=== PATIENT | female | born 1955 | race Caucasian/White ===

== ENCOUNTER 2016-12-14 07:46 | Inpatient (IN) ==
[2016-12-09 15:29] LABS: Blood Urea Nitrogen 14 mg/dl (8-23)
[2016-12-09 15:45] LABS: Basophils # (Auto) 0 K/mcL (0.0-0.3); Basophils % (Auto) 0.6 % (0.0-2.0); Eosinophils # (Auto) 0.1 K/mcL (0.0-0.7); Eosinophils % (Auto) 2.1 % (0.0-7.0); Granulocytes % (Auto) 48.2 % (38.0-78.0); Lymphocytes # (Auto) 2.2 K/mcL (1.5-4.8); Lymphocytes % (Auto) 38.6 % (15.5-49.0); Mean Cell Volume 89.3 fL (80.0-100.0); Mean Corpuscular HGB Conc 33.8 g/dL (31.0-36.0); Mean Corpuscular Hemoglobin 30.2 pg (26.0-34.0); Monocytes # (Auto) 0.6 K/mcL (0.1-0.9); Monocytes % (Auto) 10.5 % (1.0-12.0); Platelet Count 207 K/mcL (140-440); RBC 4.47 M/mcL (4.00-5.20); Red Cell Distribution Width 12.6 % (11.5-14.5)
[2016-12-09 16:16] LABS: Appearance,Urine CLEAR; Bilirubin,Urine NEG (NEG); Color,Urine YELLOW; Glucose,Urine (UA) NEGATIVE (NEG); Leukocyte Esterase,Urine NEG /uL (NEG); Nitrate,Urine NEG (NEG); Protein,Urine NEG (NEG); Specific Gravity,Urine 1.033 (1.000-1.035); Urine Blood NEG mg/dL (<0.03); Urobilinogen,Urine NEG (NEG)
[~2016-12-14 07:46] MED LIST: ACETAMINOPHEN 500 MG TABLET PO SCH; CELECOXIB 200 MG CAPSULE PO SCH; KETOROLAC 30 MG, ROPIVACAINE HCL/PF 49.5 ML, EPINEPHrine 0.5 MG, 0.9 % SODIUM CHLORIDE ... IJ SCH; PREGABALIN 75 MG CAPSULE PO SCH; ceFAZolin 1 GM VIAL IV SCH
[2016-12-14] MEDS ORDERED: LIDOCAINE HCL/PF 100 MG/5 ML SYRINGE IV ONE (11:05)
[2016-12-14] MEDS ORDERED: MIDAZOLAM 2 MG/2 ML VIAL IV ONE (11:05)
[2016-12-14] MEDS ORDERED: GLYCOPYRROLATE 0.2 MG/ML VIAL IV ONE (11:05)
[2016-12-14] MEDS ORDERED: ONDANSETRON 4 MG/2 ML VIAL IV ONE (11:05)
[2016-12-14] MEDS ORDERED: PROPOFOL 200 MG/20 ML VIAL IV ONE (11:05)
[2016-12-14] MEDS ORDERED: DEXAMETHASONE 10 MG/ML VIAL IV ONE (11:05)
[2016-12-14] MEDS ORDERED: ePHEDrine 50 MG/ML AMPUL IV ONE (11:05)
[2016-12-14] MEDS ORDERED: PHENYLEPHRINE 10 MG/ML VIAL IV ONE (11:05)
[2016-12-14] MEDS ORDERED: GENTAMICIN SULFATE 800 MG/20 ML VIAL IR ONE (11:38)
[2016-12-14] MEDS ORDERED: ONDANSETRON 4 MG/2 ML VIAL IV PRN ×2 (12:33→12:59)
[2016-12-14] MEDS ORDERED: IPRATROPIUM/ALBUTEROL 3 ML AMPUL.NEB NEB PRN (12:33)
[2016-12-14] MEDS ORDERED: METOPROLOL TARTRATE 5 MG/5 ML VIAL IV PRN (12:33)
[2016-12-14] MEDS ORDERED: ePHEDrine 50 MG/ML AMPUL IV PRN (12:33)
[2016-12-14] MEDS ORDERED: diphenhydrAMINE 50 MG/ML VIAL IV PRN (12:33)
[2016-12-14] MEDS ORDERED: NALOXONE HCL 0.4 MG/ML VIAL IV PRN (12:33)
[2016-12-14] MEDS ORDERED: METHOCARBAMOL 1,000 MG/10 ML VIAL IV PRN (12:33)
[2016-12-14] MEDS ORDERED: ATROPINE SULFATE 0.4 MG/ML VIAL IV PRN (12:33)
[2016-12-14] MEDS ORDERED: BENZOCAINE/MENTHOL 1 LOZENGE PO PRN ×2 (12:33→12:59)
[2016-12-14] MEDS ORDERED: MEPERIDINE 25 MG/ML SYRINGE IV PRN (12:33)
[2016-12-14] MEDS ORDERED: FLUMAZENIL 0.1 MG/ML ML IV PRN (12:33)
[2016-12-14] MEDS ORDERED: LACTATED RINGERS 1,000 ML IV SCH (12:45)
[2016-12-14] MEDS ORDERED: BISACODYL 10 MG SUPP.RECT PR PRN (12:59)
[2016-12-14] MEDS ORDERED: TRANEXAMIC ACID 1,000 MG/10 ML VIAL IV ONE (12:59)
[2016-12-14] MEDS ORDERED: MAGNESIUM HYDROXIDE 30 ML ORAL.SUSP PO PRN (12:59)
[2016-12-14] MEDS ORDERED: TEMAZEPAM 15 MG CAPSULE PO PRN (12:59)
[2016-12-14] MEDS ORDERED: POLYETHYLENE GLYCOL 3350 17 GM PACKET PO PRN (12:59)
[2016-12-14] MEDS ORDERED: FLEETS ADULT ENEMA PR PRN (12:59)
[2016-12-14] MEDS ORDERED: ACETAMINOPHEN 325 MG TABLET PO PRN (12:59)
--- NOTE | 2016-12-14 12:59 | Brief Operative Note ---
Date of procedure: 12/14/16 Pre-op diagnosis: Left knee djd severe in all 3 compartment Post-op diagnosis: same Procedure: Left robotic tka Grafts/Implants: Yes Anesthesia: LUIZ Surgeon: Patric Conroy Terminal Operations Manager: Bernabe Chaves Estimated blood loss (cc): 20 Tourniquet Time (Minutes): 72 Specimens Removed/Pathology: none sent Condition: stable Disposition: PACU
[2016-12-14] MEDS: fentaNYL 100 MCG/2 ML VIAL IV PRN ×4 (14:00→14:20)
--- NOTE | 2016-12-14 14:07 | Operative Note ---
DATE OF OPERATION: 12/14/2016 PREOPERATIVE DIAGNOSIS: Left knee degenerative arthritis, severe. POSTOPERATIVE DIAGNOSIS: Left knee degenerative arthritis, severe. PROCEDURE: Left total knee arthroplasty. SURGEON: Patric Conroy MD. MARINE MACHINIST: Bernabe Chaves PA-C. ANESTHESIA: General LMA anesthesia. COMPLICATIONS: None. IMPLANTS: This was a robotic total knee arthroplasty using [place] components. A size 4 femur, size 4 tibial baseplate with an 11 mm poly, and a 33 mm patellar button. All components were cemented. No complications. This was a cruciate retained design. ESTIMATED BLOOD LOSS: About 20 mL. DESCRIPTION OF PROCEDURE: The patient was brought to the operating room and put to sleep with general LMA anesthesia. Once asleep, the patient had the left leg confirmed as the operative site. Once this was done, we sterilely prepped and draped with Ioban over the skin. The leg was exsanguinated and inflated the tourniquet to 325 pounds of pressure. Midline incision was made, mid vastus approach performed, and exposed the joint showing severe arthritis in all three compartments, intact ACL and PCL. We removed the ACL and anterior menisci. We then registered the center of hip rotation, medial and lateral malleolus, and then intraarticular pins of femur and tibia were registered, as well as 30 points on the femur and tibia. We then balanced the knee at 15 degrees and 90 degrees respectively, both medial and lateral. Once the components were readjusted to accommodate for the alignment and rotation of the femur, we then proceeded by bringing the robot in. It was registered, as well as the femur. The distal femoral cut and posterior chamfer cut was made. Once done, we then changed the saw blade and made our posterior and anterior cut and anterior chamfer cut. Then, we made our tibial cut after registering the robot and the tibia again. The bony fragments were removed, meniscus fragments were removed, and spurs posteriorly were removed. We injected the soft tissue capsule with a post-inject formula. We then set rotation using the robot of the tibia and punched into place the tibia and femur. Once this was done, we then placed an 11 mm poly taking it through range of motion and registering the preoperative plan. Full extension was achieved. We irrigated thoroughly. We then prepared the patella. It measured 20 mm in total. This was cut to 13, and then this was cemented into place, a patellar component 33 mm in diameter. We irrigated thoroughly and took the knee through range of motion. Patella tracked perfectly. We irrigated thoroughly. We then irrigated and cemented into place the above-mentioned sizes. Excess cement was removed. An 11 mm poly and patellar button were all cemented, and then we closed the capsule after deflating the tourniquet and closed with two Stratafix sutures. Skin was closed with 0 Vicryl and adhesive closure, as well as the portals were closed with 4-0 nylon. The patient tolerated this well. No complication. ANA PAULA:emmanuel Job ID: [id number] Doc ID: [id number] Patric Conroy MD
[2016-12-14] MEDS: HYDROmorphone 2 MG/ML SYRINGE IV PRN ×3 (14:26→15:23)
[2016-12-14] MEDS: 0.9 % SODIUM CHLORIDE 10 ML SYRINGE IV SCH ×2 (14:35→21:44)
[2016-12-14] MEDS: 0.45 % SODIUM CHLORIDE 1,000 ML IV SCH (14:35)
--- NOTE | 2016-12-14 14:39 | XRay Report ---
HISTORY: Reason for Exam:Post-Op Total Knee FINDINGS: There is a well positioned total knee prosthesis. No fracture is present. There are no abnormal soft tissue calcifications. A joint effusion is noted. IMPRESSION: Well-positioned knee prosthesis Interpreted and Authenticated by: Fredi Reese 12/14/16
[2016-12-14] MEDS: HYDROcodone/APAP 10/325MG TABLET PO PRN (17:35)
[2016-12-14] MEDS: KETOROLAC 15 MG/ML VIAL IV SCH (18:10)
[2016-12-14] MEDS: ceFAZolin 1 GM VIAL IV SCH (19:16)
[2016-12-14] MEDS ORDERED: VITAMIN D3 1,000 UNIT TABLET PO SCH (21:00)
[2016-12-14] MEDS ORDERED: SENNOSIDES 1 TABLET PO SCH (21:00)
[2016-12-14] MEDS ORDERED: CITALOPRAM 20 MG TABLET PO SCH (21:00)
[2016-12-14] MEDS ORDERED: ESTROGENS, CONJUGATED 0.625 MG TABLET PO SCH (21:00)
[2016-12-14] MEDS ORDERED: SIMVASTATIN 20 MG TABLET PO SCH (21:00)
[2016-12-14] MEDS: oxyCODONE 10 MG TAB.ER.12H PO SCH (21:41)
[2016-12-14] MEDS: DOCUSATE SODIUM 100 MG CAPSULE PO SCH (21:42)
[2016-12-14] MEDS: sulfaSALAzine 500 MG TABLET PO SCH (21:43)
[2016-12-14] MEDS: ASPIRIN 325 MG ENTERIC COATED TABLET PO SCH (21:43)
[2016-12-15] MEDS: 0.45 % SODIUM CHLORIDE 1,000 ML IV SCH (00:08)
[2016-12-15] MEDS: KETOROLAC 15 MG/ML VIAL IV SCH ×3 (00:09→11:45)
[2016-12-15] MEDS: HYDROcodone/APAP 10/325MG TABLET PO PRN ×4 (01:08→14:58)
[2016-12-15] MEDS: HYDROmorphone 2 MG/ML SYRINGE IV PRN (01:09)
[2016-12-15] MEDS: ceFAZolin 1 GM VIAL IV SCH (02:59)
[2016-12-15] MEDS: 0.9 % SODIUM CHLORIDE 10 ML SYRINGE IV SCH ×2 (05:24→16:12)
[2016-12-15] MEDS ORDERED: LEVOTHYROXINE 50 MCG TABLET PO SCH (07:30)
[2016-12-15] MEDS ORDERED: OMEPRAZOLE 20 MG CAPSULE PO SCH (07:30)
[2016-12-15] MEDS ORDERED: LEVOTHYROXINE 100 MCG TABLET PO SCH (07:30)
--- NOTE | 2016-12-15 07:45 | Orthopedic Progress Note ---
Subjective Patient information: Note initiated : 12/15/16 at 7:44 am Service Date, if different from initiated Date: [] Patient: Stephania Brannon 60 y/o F admitted on 12/14/16 for Left Total Knee Arthroplasty - Robotic Assist. Chief Complaint: [Pt is stable this morning on post operative day 1 without any significant concerns or complaints. Patients vital signs have remained stable. Patients dressing is dry and exhibits a grossly intact neurovascular and neuromotor exam. Patients 10 point ROS is otherwise negative. ] Objective Vital signs: Vital Signs Temp Pulse Resp BP BP Pulse Ox 12/15/16 03:00 97.8 F 88 16 146/91 95 12/14/16 23:05 98.5 F 81 16 129/86 93 12/14/16 20:03 95 12/14/16 20:00 97.6 F 86 12 125/80 93 12/14/16 17:15 97.4 F 96 H 16 113/57 93 12/14/16 16:59 93 12/14/16 16:15 78 14 120/85 93 12/14/16 15:45 72 14 136/91 90 12/14/16 15:15 145/86 90 12/14/16 15:00 136/68 92 12/14/16 14:45 97.4 F 133/84 93 12/14/16 14:30 97.4 F 77 12 95 12/14/16 14:20 98.4 F 76 14 129/70 93 12/14/16 14:12 76 13 131/74 91 12/14/16 13:55 77 13 134/70 93 12/14/16 13:48 98 F 77 13 123/65 99 12/14/16 13:35 98 F 74 14 116/66 99 12/14/16 13:28 70 16 125/67 99 12/14/16 13:22 98 F 72 16 123/72 99 12/14/16 08:00 98 F 16 126/74 98 12/14/16 07:46 18 Intake and Output 12/14/16 12/15/16 12/15/16 21:59 05:59 13:59 Intake Total 290 / 290 1005 / 1005 Output Total 1600 / 1600 225 / 225 Balance -1310 / -1310 780 / 780 Intake: IV 50 / 50 955 / 955 Sodium Chloride 0.45% 1, 955 / 955 000 ml @ 100 mls/hr IV . Q10H BERNABE Rx#:[id number] Oral 240 / 240 50 / 50 Output: Urine Catheter Amount 800 / 800 Void Amount 800 / 800 225 / 225 Straight 800 / 800 Other: Meal Dinner Percent of Meal Consumed 100% Feeding Ability Independent # Voids 1 Weight 323 lb 3.2 oz Intake & Output: Intake & Output 12/14/16 12/15/16 12/15/16 21:59 05:59 13:59 Intake Total 290 / 290 1005 / 1005 Output Total 1600 / 1600 225 / 225 Balance -1310 / -1310 780 / 780 Weight 323 lb 3.2 oz Intake: IV 50 / 50 955 / 955 Sodium Chloride 0.45% 1, 955 / 955 000 ml @ 100 mls/hr IV . Q10H BERNABE Rx#:[id number] Oral 240 / 240 50 / 50 Output: Urine Catheter Amount 800 / 800 Void Amount 800 / 800 225 / 225 Straight 800 / 800 Other: Meal Dinner Percent of Meal Consumed 100% Feeding Ability Independent # Voids 1 Incision: Yes healing Incision clean and dry: Yes Dressing: Yes clean Weight bearing status: full Neurological exam IM: Yes motor sensory intact, Yes neurovascular intact Extremities exam IM: Yes Foot pink and warm, Yes neurovascular intact - Labs CBC & BMP: 12/15/16 05:50 12/09/16 14:18 Labs: Orthopedic Labs 12/09/16 14:18 PT 13.3 INR 1.0 APTT 37 12/15/16 12/09/16 05:50 14:18 Hgb 13.5 Hct 35.7 L 39.9 Assessment and Plan (1) Hx of total knee arthroplasty Patient has been educated regarding wound care and dressings, follow up recommendations, and medication use. We will f/u with the patient within 2-3 weeks for wound check. Status: Acute
--- NOTE | 2016-12-15 07:48 | Discharge Summary ---
Ortho Discharge - TKA - Patient Instructions Diet: Regular Diet Activity: activity as tolerated, weight bearing as tolerated Total Knee Protocol: For Total Knee: Start ROM CHRISTEN with stationary bike or rocking chair. Work on gaining full extension of knee. Posterior dislocation precautions provided. Hip abductor strengthening and gait training instructions provided. Apply Cryocuff as instructed. Dressing Care: May shower in 3 days, Aquacel Ag - leave on for 5 days Patient Education: Total Knee Replacement (DC) Additional Instructions: [facility] Physical Therapy [phone] APPOINTMENT: December 17. Please check in to do paperwork at 12:45 for your 1:00pm appointment. Bring your insurance cards and photo ID. Wear comfortable clothes and consider taking pain medications 30 minutes prior to your appointment. Your PT orders have been faxed to them. CPM for home use - Problem Maintenance (1) Hx of total knee arthroplasty Status: Acute - Follow Up Plan Follow Up Appointments: Patric Conroy MD [Physician] - Disposition: Home, Self-Care Prognosis: Good Rehab Potential: Good I certify that the patient requires SNF services: No Overall status at discharge: patient is progressing back to baseline - Orders For Discharge Prescriptions: Aspirin [Ecotrin] 325 mg PO BID #60 Docusate Sodium [Colace] 100 mg PO BID #60 capsule HYDROcodone/APAP 10/325MG [[place] 10/325Mg] 1 - 2 tab PO Q4HP PRN #75 tablet PRN Reason: Pain
[2016-12-15] MEDS ORDERED: LISINOPRIL 20 MG TABLET PO SCH (09:00)
[2016-12-15] MEDS ORDERED: HYDROCHLOROTHIAZIDE 12.5 MG CAPSULE PO SCH (09:00)
[2016-12-15] MEDS: ASPIRIN 325 MG ENTERIC COATED TABLET PO SCH (09:08)
[2016-12-15] MEDS: DOCUSATE SODIUM 100 MG CAPSULE PO SCH (09:08)
[2016-12-15] MEDS: oxyCODONE 10 MG TAB.ER.12H PO SCH (09:08)
[2016-12-15] MEDS: sulfaSALAzine 500 MG TABLET PO SCH (09:09)
== END 2016-12-15 16:25 | disposition home or self-care (01) | DRG 470 ==
LOC: MEDSUR 07:46
PROVIDERS: ADMIT Orthopaedic Surgery; ATTEND Orthopaedic Surgery

== ENCOUNTER 2017-02-26 07:43 | Inpatient (IN) ==
[2017-02-22 16:09] LABS: Basophils # (Auto) 0 K/mcL (0.0-0.3); Basophils % (Auto) 0.5 % (0.0-2.0); Eosinophils # (Auto) 0.1 K/mcL (0.0-0.7); Eosinophils % (Auto) 1.9 % (0.0-7.0); Granulocytes % (Auto) 49.4 % (38.0-78.0); Lymphocytes # (Auto) 2.3 K/mcL (1.5-4.8); Lymphocytes % (Auto) 38.3 % (15.5-49.0); Mean Cell Volume 91.4 fL (80.0-100.0); Mean Corpuscular Hemoglobin 30.1 pg (26.0-34.0); Monocytes # (Auto) 0.6 K/mcL (0.1-0.9); Monocytes % (Auto) 9.9 % (1.0-12.0); Platelet Count 202 K/mcL (140-440); RBC 4.26 M/mcL (4.00-5.20); Red Cell Distribution Width 14.2 % (11.5-14.5)
[2017-02-22 16:12] LABS: Appearance,Urine CLEAR; Bilirubin,Urine NEG (NEG); Color,Urine YELLOW; Glucose,Urine (UA) NEGATIVE (NEG); Leukocyte Esterase,Urine NEG /uL (NEG); Nitrate,Urine NEG (NEG); Protein,Urine NEG (NEG); Specific Gravity,Urine 1.025 (1.000-1.035); Urine Blood NEG mg/dL (<0.03); Urobilinogen,Urine NEG (NEG)
[2017-02-22 16:27] LABS: Blood Urea Nitrogen 13 mg/dl (8-23)
[~2017-02-26 07:43] MED LIST changes: +oxyCODONE 10 MG TAB.ER.12H PO SCH
[2017-02-26] MEDS ORDERED: FLEETS ADULT ENEMA PR PRN (11:04)
[2017-02-26] MEDS ORDERED: POLYETHYLENE GLYCOL 3350 17 GM PACKET PO PRN (11:04)
[2017-02-26] MEDS ORDERED: BISACODYL 10 MG SUPP.RECT PR PRN (11:04)
[2017-02-26] MEDS ORDERED: TRANEXAMIC ACID 1,000 MG/10 ML VIAL IV SCH (11:04)
[2017-02-26] MEDS ORDERED: BENZOCAINE/MENTHOL 1 LOZENGE PO PRN ×2 (11:04→12:31)
[2017-02-26] MEDS ORDERED: ACETAMINOPHEN 325 MG TABLET PO PRN (11:04)
[2017-02-26] MEDS ORDERED: MAGNESIUM HYDROXIDE 30 ML ORAL.SUSP PO PRN (11:04)
--- NOTE | 2017-02-26 11:04 | Brief Operative Note ---
Date of procedure: 02/26/17 Pre-op diagnosis: right tka Post-op diagnosis: same Procedure: Right robotic tka Grafts/Implants: Yes Anesthesia: GETA Complications: none Complications Description: 02/26/17 11:03 none Surgeon: Patric Conroy Metaphysicist: Bernabe Chaves Estimated blood loss (cc): 50 Tourniquet Time (Minutes): 52 Specimens Removed/Pathology: none sent Condition: stable Disposition: PACU
[2017-02-26] MEDS ORDERED: MIDAZOLAM 2 MG/2 ML VIAL IV ONE (11:12)
[2017-02-26] MEDS ORDERED: PROPOFOL 200 MG/20 ML VIAL IV ONE (11:12)
[2017-02-26] MEDS ORDERED: LIDOCAINE HCL/PF 100 MG/5 ML SYRINGE IV ONE (11:12)
[2017-02-26] MEDS ORDERED: PHENYLEPHRINE 10 MG/ML VIAL IV ONE (11:12)
[2017-02-26] MEDS ORDERED: TRANEXAMIC ACID 1,000 MG/10 ML VIAL IV ONE (11:12)
[2017-02-26] MEDS ORDERED: ONDANSETRON 4 MG/2 ML VIAL IV ONE (11:12)
[2017-02-26] MEDS ORDERED: GLYCOPYRROLATE 0.2 MG/ML VIAL IV ONE (11:12)
[2017-02-26] MEDS ORDERED: DEXAMETHASONE 10 MG/ML VIAL IV ONE (11:12)
[2017-02-26] MEDS ORDERED: GENTAMICIN SULFATE 800 MG/20 ML VIAL IR ONE (11:52)
[2017-02-26] MEDS ORDERED: diphenhydrAMINE 50 MG/ML VIAL IV PRN (12:31)
[2017-02-26] MEDS ORDERED: LACTATED RINGERS 250 ML IV PRN (12:31)
[2017-02-26] MEDS ORDERED: IPRATROPIUM/ALBUTEROL 3 ML AMPUL.NEB NEB PRN (12:31)
[2017-02-26] MEDS ORDERED: METHOCARBAMOL 1,000 MG/10 ML VIAL IV PRN (12:31)
[2017-02-26] MEDS ORDERED: ePHEDrine 50 MG/ML AMPUL IV PRN (12:31)
[2017-02-26] MEDS ORDERED: FLUMAZENIL 0.1 MG/ML ML IV PRN (12:31)
[2017-02-26] MEDS ORDERED: MEPERIDINE 25 MG/ML SYRINGE IV PRN (12:31)
[2017-02-26] MEDS ORDERED: HYDROmorphone 2 MG/ML SYRINGE IV PRN (12:31)
[2017-02-26] MEDS ORDERED: PROMETHAZINE 25 MG/ML VIAL IV PRN (12:31)
[2017-02-26] MEDS ORDERED: fentaNYL 100 MCG/2 ML VIAL IV PRN (12:31)
[2017-02-26] MEDS ORDERED: PROMETHAZINE 25 MG/ML VIAL IM PRN (12:31)
[2017-02-26] MEDS ORDERED: MEPERIDINE 50 MG/ML SYRINGE IM PRN (12:31)
[2017-02-26] MEDS ORDERED: ONDANSETRON 4 MG/2 ML VIAL IV PRN (12:31)
[2017-02-26] MEDS ORDERED: NALOXONE HCL 0.4 MG/ML VIAL IV PRN (12:31)
[2017-02-26] MEDS ORDERED: LACTATED RINGERS 1,000 ML IV SCH (12:45)
--- NOTE | 2017-02-26 13:30 | Operative Note ---
DATE OF OPERATION: 02/26/2017 PREOPERATIVE DIAGNOSIS: Right knee degenerative arthritis throughout all three compartments. POSTOPERATIVE DIAGNOSIS: Right knee degenerative arthritis throughout all three compartments. PROCEDURE: NADIRA robot total knee arthroplasty. SURGEON: Patric Conroy M.D. FISH AGENT: Bernabe Chaves PA-C. ANESTHESIA: General LMA anesthesia. COMPLICATIONS: None. TOTAL TOURNIQUET TIME: 64 minutes. COMPLICATIONS: None. ESTIMATED BLOOD LOSS: About 50 mL. IMPLANTS PLACED: Size 4 femur, size 4 tibial baseplate with a 9 mm poly and a 36 mm patellar button. DESCRIPTION OF PROCEDURE: The patient was brought to the operating room and put to sleep with general LMA anesthesia. Once asleep, the patient had the right leg sterilely prepped and draped in the usual sterile fashion. A timeout was performed confirming the operative site, and then the patient received tranexamic acid and antibiotics, 2 grams of Ancef. Once this was done, we then placed Ioban over the skin, exsanguinated the leg at 300 pounds of pressure. We made a midline incision, a mid vastus approach performed. We exposed the joint showing severe arthritis. At that point we proceeded with a total knee arthroplasty using the NADIRA robot. Two pins above and below the knee were placed. We registered the center hip rotation, thirty points on the femur and tibia, and two articular pins were registered. The robot was registered. We balanced the knee in both flexion and extension at 90 degrees and 0 degrees. She had about an 8 degree flexion contracture at the start of the case. Once this was done, we then brought in the robot, perfectly positioned the components. The robot came in and made the cuts on the femur and the tibia. These bony fragments were removed. The remnants of the meniscus were removed, and osteophytes posteriorly were removed. We set the rotation using the robot, size 4 tibial baseplate. This was punched into place. The size 4 femur was tapped into place and posts were drilled. We then placed a 9 mm poly at 0 degrees extension and full range of motion was achieved. Posterior cruciate ligament was kept. We irrigated thoroughly and then prepared the patella. Its total thickness was 20 mm. We cut this to 14 mm because of her size, and we also placed a 36 mm patellar button. All components were cemented after trialing these components which fit very nicely. Once the cement was dry, we kept the knee at 45 degrees. A 9 mm poly was inserted. Pins were all removed and counted. We then closed the mid vastus approach after the tourniquet had been deflated at 64 minutes. The mid vastus approach was closed with a #1 Stratafix suture x2 sutures. We closed the skin with #1 Vicryl and 2-0 Vicryl and koko. Sterile bandage applied. The patient tolerated this well. Blood loss was about 50 mL. ANA PAULA:emmanuel Job ID: [id number] Doc ID: [id number] Patric Conroy MD
[2017-02-26] MEDS: 0.9 % SODIUM CHLORIDE 10 ML SYRINGE IV SCH ×3 (14:32→22:33)
[2017-02-26] MEDS: 0.45 % SODIUM CHLORIDE 1,000 ML IV SCH ×2 (14:32→23:48)
--- NOTE | 2017-02-26 14:34 | XRay Report ---
HISTORY: Reason for Exam:Post-Op Total Knee FINDINGS: There is a well positioned total knee prosthesis. No fracture is present. There are no abnormal soft tissue calcifications. IMPRESSION: Well-positioned right knee prosthesis Interpreted and Authenticated by: Fredi Reese 02/26/17
[2017-02-26] MEDS: ONDANSETRON 4 MG/2 ML VIAL IV PRN ×3 (15:28→23:55)
[2017-02-26] MEDS: oxyCODONE/APAP 5/325MG TABLET PO PRN (15:52)
[2017-02-26] MEDS: HYDROmorphone 2 MG/ML SYRINGE IV PRN ×2 (16:51→19:13)
[2017-02-26] MEDS: KETOROLAC 15 MG/ML VIAL IV SCH ×2 (17:44→23:39)
[2017-02-26] MEDS: ceFAZolin 1 GM VIAL IV SCH (17:45)
[2017-02-26] MEDS ORDERED: NON FORMULARY MEDICATION 1 DOSE MISCELL (Aspirin [Adult Low Dose Aspirin Ec] 81 MG) PO SCH (21:00)
[2017-02-26] MEDS ORDERED: TEMAZEPAM 15 MG CAPSULE PO PRN (21:00)
[2017-02-26] MEDS ORDERED: DICLOFENAC PO SCH (21:00)
[2017-02-26] MEDS: DOCUSATE SODIUM 100 MG CAPSULE PO SCH (22:30)
[2017-02-26] MEDS: VITAMIN D3 1,000 UNIT TABLET PO SCH (22:30)
[2017-02-26] MEDS: FISH OIL 1,000 MG CAPSULE PO SCH (22:30)
[2017-02-26] MEDS: ESTROGENS, CONJUGATED 0.625 MG TABLET PO SCH (22:30)
[2017-02-26] MEDS: HYDROCHLOROTHIAZIDE 12.5 MG CAPSULE PO SCH (22:30)
[2017-02-26] MEDS: sulfaSALAzine 500 MG TABLET PO SCH (22:31)
[2017-02-26] MEDS: MULTIVIT,THER IRON,CA,FA & MIN 1 TABLET PO SCH (22:31)
[2017-02-26] MEDS: OMEPRAZOLE 20 MG CAPSULE PO SCH (22:31)
[2017-02-26] MEDS: CITALOPRAM 20 MG TABLET PO SCH (22:31)
[2017-02-26] MEDS: SIMVASTATIN 20 MG TABLET PO SCH (22:32)
[2017-02-26] MEDS: SENNOSIDES 1 TABLET PO SCH (22:32)
[2017-02-26] MEDS: LISINOPRIL 20 MG TABLET PO SCH (22:32)
[2017-02-26] MEDS: ASPIRIN 325 MG ENTERIC COATED TABLET PO SCH (22:32)
[2017-02-27] MEDS: ceFAZolin 1 GM VIAL IV SCH (02:15)
[2017-02-27] MEDS: 0.9 % SODIUM CHLORIDE 10 ML SYRINGE IV SCH ×3 (05:57→20:36)
[2017-02-27] MEDS: KETOROLAC 15 MG/ML VIAL IV SCH ×3 (05:57→17:26)
[2017-02-27] MEDS: oxyCODONE/APAP 5/325MG TABLET PO PRN ×4 (06:32→16:46)
[2017-02-27] MEDS: 0.45 % SODIUM CHLORIDE 1,000 ML IV SCH (06:33)
[2017-02-27] MEDS: sulfaSALAzine 500 MG TABLET PO SCH ×2 (08:31→20:33)
[2017-02-27] MEDS: ASPIRIN 325 MG ENTERIC COATED TABLET PO SCH ×2 (08:31→20:33)
[2017-02-27] MEDS: LEVOTHYROXINE 50 MCG TABLET PO SCH (08:31)
[2017-02-27] MEDS: R PO SCH (08:31)
[2017-02-27] MEDS: DOCUSATE SODIUM 100 MG CAPSULE PO SCH ×2 (08:31→20:33)
--- NOTE | 2017-02-27 09:11 | Orthopedic Progress Note ---
Subjective Patient information: Note initiated : 02/27/17 at 9:09 am Service Date, if different from initiated Date: [] Patient: Stephania Brannon 61 y/o F admitted on 02/26/17 for Right Total Knee Arthroplasty with [place] Robot. Chief Complaint: [She did have nausea and vomiting and has not urinated and is walking welll and wants to go home if she feels better today.] Objective Vital signs: Vital Signs Temp Pulse Resp BP Pulse Ox 02/27/17 08:41 94 02/27/17 06:46 91 02/27/17 06:28 96.6 F L 18 106/68 98 02/27/17 03:37 97.2 F 76 16 104/66 96 02/27/17 03:00 96 02/26/17 23:42 97.4 F 88 16 109/63 95 02/26/17 23:00 94 02/26/17 20:00 93 02/26/17 19:23 98 F 87 15 110/72 94 02/26/17 19:04 94 02/26/17 16:53 132/83 96 02/26/17 16:52 130/75 97 02/26/17 16:07 95 02/26/17 15:25 122/76 92 02/26/17 15:04 76 02/26/17 14:55 117/70 96 02/26/17 14:40 111/64 94 02/26/17 14:25 106/67 94 02/26/17 14:10 145/69 97 02/26/17 14:02 97.4 F 71 13 115/66 95 02/26/17 14:00 69 02/26/17 13:57 77 18 123/72 97 02/26/17 13:52 70 14 113/66 96 02/26/17 13:47 68 18 115/74 97 02/26/17 13:42 68 16 127/70 97 02/26/17 13:32 97.4 F 65 12 128/72 95 Intake and Output 02/26/17 02/27/17 02/27/17 21:59 05:59 13:59 Intake Total 1640 / 1640 1127 / 1127 320 / 320 Output Total 850 / 850 Balance 1640 / 1640 277 / 277 320 / 320 Intake: IV 1050 / 1050 927 / 927 Sodium Chloride 0.45% 1,000 ml 927 / 927 @ 100 mls/hr IV .Q10H BERNABE Rx#: [id number] Oral 590 / 590 200 / 200 320 / 320 Output: Urine Catheter Amount 375 / 375 Emesis 475 / 475 Other: Meal Dinner Breakfast Percent of Meal Consumed 25% 100% Feeding Ability Independent # Voids 1 Weight 308 lb Intake & Output: Intake & Output 02/26/17 02/27/17 02/27/17 21:59 05:59 13:59 Intake Total 1640 / 1640 1127 / 1127 320 / 320 Output Total 850 / 850 Balance 1640 / 1640 277 / 277 320 / 320 Weight 308 lb Intake: IV 1050 / 1050 927 / 927 Sodium Chloride 0.45% 1,000 ml 927 / 927 @ 100 mls/hr IV .Q10H BERNABE Rx#: [id number] Oral 590 / 590 200 / 200 320 / 320 Output: Urine Catheter Amount 375 / 375 Emesis 475 / 475 Other: Meal Dinner Breakfast Percent of Meal Consumed 25% 100% Feeding Ability Independent # Voids 1 Incision: Yes healing Incision clean and dry: Yes Dressing: Yes clean Weight bearing status: full Neurological exam IM: Yes oriented X3, Yes neurovascular intact Extremities exam IM: Yes Foot pink and warm (dc home), Yes neurovascular intact - Labs CBC & BMP: 02/27/17 05:25 02/22/17 14:47 Labs: Orthopedic Labs 02/22/17 14:47 PT 12.9 INR 1.0 APTT 32 02/27/17 02/22/17 05:25 14:48 Hgb 12.8 Hct 36.0 38.9
--- NOTE | 2017-02-27 09:18 | Discharge Summary ---
Ortho Discharge - TKA - Patient Instructions Diet: Regular Diet Activity: activity as tolerated, weight bearing as tolerated Total Knee Protocol: For Total Knee: Start ROM CHRISTEN with stationary bike or rocking chair. Work on gaining full extension of knee. Posterior dislocation precautions provided. Hip abductor strengthening and gait training instructions provided. Apply Cryocuff as instructed. Dressing Care: May shower in 2 days, Aquacel Ag - leave on for 5 days Patient Education: Total Knee Replacement (DC) Additional Instructions: Discharge Instructions: Do the exercises at home that physical therapy gave you. Weight bearing as tolerated. Please call [facility] Physical Therapy on WednesdayMarch 01 to make an appointment , . Take your prescription, photo ID, insurance cards, and current medication list with you to your first physical therapy appointment. Wear comfortable clothing for your physical therapy. Take your prescription to rock picker any medication or equipment (such as walker, crutches, toilet riser or C.P.M.) CPM for home use You have the Aquacel Ag dressing, leave in place for 7 days then remove. If dressing becomes soiled (turns black), remove and use gauze 4x4 dressing and silvasorb ointment and change daily. Keep incision clean and dry. You may start showering on post op day #2. To avoid constipation while taking any narcotic pain medication, take an over the counter stool softener/laxative. Use your Cryocuff or ice packs as directed, on for 20 minutes at a time throughout the day. This and elevation will help with pain and swelling. Call your physician for fevers above 100.5 or pain not controlled by medication. Your prescriptions are with your discharge information. Some medications were electronically transmitted to your pharmacy of choice. - Follow Up Plan Follow Up Appointments: Patric Conroy MD [Physician] - 03/11/17 10:40 am Disposition: Home, Self-Care Prognosis: Good Rehab Potential: Good I certify that the patient requires SNF services: No Overall status at discharge: patient is progressing back to baseline - Orders For Discharge Prescriptions: Aspirin [Ecotrin] 325 mg PO DAILY #14 tab.ec oxyCODONE/APAP [Percocet 5-325 mg] 1 - 2 tab PO Q4H PRN #60 tab PRN Reason: Pain Additional Discharge Orders: Physical Therapy at Discharge - TKA Location: Determined By Patient Toilet Riser Discharge Order Location: Determined By Patient Walker Location: Determined By Patient
[2017-02-27] MEDS: HYDROmorphone 2 MG/ML SYRINGE IV PRN (09:26)
--- NOTE | 2017-02-27 09:28 | Discharge Summary ---
Providers - Providers Patient information: Note initiated : 02/27/17 at 9:25 am Service Date, if different from initiated Date: [] Patient: Stephania Brannon 61 y/o F admitted on 02/26/17 for Right Total Knee Arthroplasty with Raffi Robot. Chief Complaint: [] Date of admission: 02/26/17 Discharge date: 02/27/17 Attending physician: Patric Conroy Hospitalization Hospital course: doing well and walking greater than 100 feet Discharge diagnosis: right tka Procedures: right tka with robot Complications: none Ortho Discharge - TKA - Patient Instructions Diet: Regular Diet Activity: activity as tolerated, weight bearing as tolerated Total Knee Protocol: For Total Knee: Start ROM CHRISTEN with stationary bike or rocking chair. Work on gaining full extension of knee. Posterior dislocation precautions provided. Hip abductor strengthening and gait training instructions provided. Apply Cryocuff as instructed. Patient Education: Total Knee Replacement (DC) Additional Instructions: Discharge Instructions: Do the exercises at home that physical therapy gave you. Weight bearing as tolerated. Please call [facility] on WednesdayMarch 01 to make an appointment , . Take your prescription, photo ID, insurance cards, and current medication list with you to your first physical therapy appointment. Wear comfortable clothing for your physical therapy. Take your prescription to picker and packer any medication or equipment (such as walker, crutches, toilet riser or C.P.M.) CPM for home use You have the Aquacel Ag dressing, leave in place for 7 days then remove. If dressing becomes soiled (turns black), remove and use gauze 4x4 dressing and silvasorb ointment and change daily. Keep incision clean and dry. You may start showering on post op day #2. To avoid constipation while taking any narcotic pain medication, take an over the counter stool softener/laxative. Use your Cryocuff or ice packs as directed, on for 20 minutes at a time throughout the day. This and elevation will help with pain and swelling. Call your physician for fevers above 100.5 or pain not controlled by medication. Your prescriptions are with your discharge information. Some medications were electronically transmitted to your pharmacy of choice. - Follow Up Plan Follow Up Appointments: Patric Conroy MD [Physician] - 03/11/17 10:40 am Disposition: Home, Self-Care Prognosis: Good Rehab Potential: Good I certify that the patient requires SNF services: No - Orders For Discharge Prescriptions: Aspirin [Ecotrin] 325 mg PO DAILY #14 tab.ec oxyCODONE/APAP [Percocet 5-325 mg] 1 - 2 tab PO Q4H PRN #60 tab PRN Reason: Pain Additional Discharge Orders: Physical Therapy at Discharge - TKA Location: Determined By Patient Toilet Riser Discharge Order Location: Determined By Patient Walker Location: Determined By Patient Pending Studies Resuscitation Status Full Code Diet Regular Diet Start WedFeb 26 Lunch Aspirin (Ecotrin) 325 mg PO BID [facility] Last Admin: 02/27/17 08:31 Dose: 325 mg Admin: 02/26/17 22:32 Dose: 325 mg Citalopram Hydrobromide (Celexa) 20 mg PO [facility] Last Admin: 02/26/17 22:31 Dose: 20 mg Docusate Sodium (Colace) 100 mg PO BID [facility] Last Admin: 02/27/17 08:31 Dose: 100 mg Admin: 02/26/17 22:30 Dose: 100 mg Estrogens Conjugated (Premarin) 0.625 mg PO [facility] Last Admin: 02/26/17 22:30 Dose: 0.625 mg Fish Oil (Fish Oil) 1,000 mg PO [facility] Last Admin: 02/26/17 22:30 Dose: 1,000 mg Hydrochlorothiazide (Oretic) 12.5 mg PO [facility] Last Admin: 02/26/17 22:30 Dose: 12.5 mg Hydromorphone HCl (Dilaudid) 0 mg IV Q2HP PRN PRN Reason: Pain Last Admin: 02/26/17 19:13 Dose: 2 mg Admin: 02/26/17 16:51 Dose: 2 mg Sodium Chloride (Sodium Chloride 0.45%) 1,000 mls @ 100 mls/hr IV .Q10H [facility] Last Admin: 02/27/17 06:33 Dose: Not Given Admin: 02/26/17 23:48 Dose: 100 mls/hr Infusion: 02/26/17 23:48 Dose: 100 mls/hr Admin: 02/26/17 14:32 Dose: 100 mls/hr Iron Carb/Multivit/Poultry Dressing Worker/Folic Acid (Multivitamin W/Minerals) 1 tab PO [facility] Last Admin: 02/26/17 22:31 Dose: 1 tab Ketorolac Tromethamine (Toradol) 15 mg IV Q6 [facility] Stop: 02/28/17 12:01 Last Admin: 02/27/17 05:57 Dose: 15 mg Admin: 02/26/17 23:39 Dose: 15 mg Admin: 02/26/17 17:44 Dose: 15 mg Levothyroxine Sodium (Synthroid) 50 mcg PO ACB [facility] Last Admin: 02/27/17 08:31 Dose: 50 mcg Levothyroxine Sodium (Synthroid) 200 mcg PO ACB [facility] Last Admin: 02/27/17 08:31 Dose: 200 mcg Lisinopril (Zestril) 20 mg PO [facility] Last Admin: 02/26/17 22:32 Dose: 20 mg Omeprazole (Prilosec) 20 mg PO [facility] Last Admin: 02/26/17 22:31 Dose: 20 mg Ondansetron HCl (Zofran) 4 mg IV Q4HP PRN PRN Reason: Nausea And Vomiting Last Admin: 02/26/17 23:55 Dose: 4 mg Admin: 02/26/17 17:59 Dose: 4 mg Admin: 02/26/17 15:28 Dose: 4 mg Oxycodone/Acetaminophen (Percocet 5-325 Mg) 0 tab PO Q4HP PRN PRN Reason: Pain Last Admin: 02/27/17 08:30 Dose: 1 tab Admin: 02/27/17 06:32 Dose: 1 tab Admin: 02/26/17 15:52 Dose: 1 tab Senna (Senokot) 2 tab PO [facility] Last Admin: 02/26/17 22:32 Dose: 2 tab Simvastatin (Zocor) 20 mg PO [facility] Last Admin: 02/26/17 22:32 Dose: 20 mg Sodium Chloride (Saline Flush) 10 ml IV Q8 [facility] Last Admin: 02/27/17 05:57 Dose: 10 ml Admin: 02/26/17 22:33 Dose: 10 ml Admin: 02/26/17 19:13 Dose: 10 ml Admin: 02/26/17 14:32 Dose: Not Given Sulfasalazine (Sulfasalazine) 1,000 mg PO BID [facility] Last Admin: 02/27/17 08:31 Dose: 1,000 mg Admin: 02/26/17 22:31 Dose: 1,000 mg Vitamin D (Vitamin D3) 4,000 unit PO HS [facility] Last Admin: 02/26/17 22:30 Dose: 4,000 unit Shift Summary 02/27/17 03:08 Shift Summary by Sandra Fuentes Patient drowsy at start of shift. Medicated with IV Dilaudid once last night with good relief. Patient felt nauseous and vomitted twice 75 mls and 400 mls. Bilous and previously ingested food. Given nausea with moderate relief. Patient desats to 80's when asleep. Placed on oxymask at 4L. Now sats 93-95%. Patient more alert this morning. Assisted to bedside commode feeling light-headed. Unable to void yet. Bladder scanned at 0245H 552 mls. Straight catheter done, drained 375 mls. Post-void scan 62 mls. Right knee dressing dry and intact. Cryo -cuff and foot pumps in place. Initialized on 02/27/17 03:08 - END OF NOTE
[2017-02-27] MEDS ORDERED: FLU VACC QS2017-18 36MOS UP/PF 60 MCG/0.5 ML SYRINGE IM ONE (10:00)
[2017-02-27] MEDS ORDERED: METHOCARBAMOL 750 MG TABLET PO PRN (17:07)
[2017-02-27] MEDS: HYDROCHLOROTHIAZIDE 12.5 MG CAPSULE PO SCH (20:33)
[2017-02-27] MEDS: FISH OIL 1,000 MG CAPSULE PO SCH (20:33)
[2017-02-27] MEDS: MULTIVIT,THER IRON,CA,FA & MIN 1 TABLET PO SCH (20:33)
[2017-02-27] MEDS: ESTROGENS, CONJUGATED 0.625 MG TABLET PO SCH (20:33)
[2017-02-27] MEDS: SENNOSIDES 1 TABLET PO SCH (20:33)
[2017-02-27] MEDS: OMEPRAZOLE 20 MG CAPSULE PO SCH (20:33)
[2017-02-27] MEDS: CITALOPRAM 20 MG TABLET PO SCH (20:33)
[2017-02-27] MEDS: LISINOPRIL 20 MG TABLET PO SCH (20:33)
[2017-02-27] MEDS: SIMVASTATIN 20 MG TABLET PO SCH (20:33)
[2017-02-27] MEDS: VITAMIN D3 1,000 UNIT TABLET PO SCH (20:34)
[2017-02-28] MEDS: KETOROLAC 15 MG/ML VIAL IV SCH ×2 (01:03→06:04)
[2017-02-28] MEDS: oxyCODONE/APAP 5/325MG TABLET PO PRN ×2 (04:32→08:15)
[2017-02-28] MEDS: 0.9 % SODIUM CHLORIDE 10 ML SYRINGE IV SCH (06:05)
[2017-02-28] MEDS: LEVOTHYROXINE 50 MCG TABLET PO SCH (07:46)
[2017-02-28] MEDS: R PO SCH (07:46)
[2017-02-28] MEDS: sulfaSALAzine 500 MG TABLET PO SCH (08:16)
[2017-02-28] MEDS: ASPIRIN 325 MG ENTERIC COATED TABLET PO SCH (08:16)
[2017-02-28] MEDS: DOCUSATE SODIUM 100 MG CAPSULE PO SCH (08:16)
== END 2017-02-28 09:37 | disposition home or self-care (01) | DRG 470 ==
LOC: MEDSUR 07:43
PROVIDERS: ADMIT Orthopaedic Surgery; ATTEND Orthopaedic Surgery